=== PATIENT | female | born 1985 | race Caucasian/White ===

== ENCOUNTER 2018-07-21 08:43 | Day surgery (SDC) | payer OTHER ==
[~2018-07-21 08:43] MED LIST: LIDOCAINE 2% (SDV) 5 ML INJ
[2018-07-21] MEDS: CEFAZOLIN 2 GM/50 ML (PMX) 50 ML IVPB (09:30)
[2018-07-21] MEDS: SOD CHLORIDE 0.9% 1,000 ML IV (09:30)
[2018-07-21] MEDS ORDERED: ROCURONIUM 50 MG INJ (11:37)
[2018-07-21] MEDS ORDERED: PROPOFOL 100 ML (11:37)
[2018-07-21] MEDS: BUPIVACAINE 0.25% (MPF) 30 ML INJ (12:19)
[2018-07-21] MEDS ORDERED: CEFAZOLIN 1 GM INJ (12:26)
[2018-07-21] MEDS ORDERED: DEXAMETHASONE 4 MG/ML 1 ML INJ (12:27)
[2018-07-21] MEDS ORDERED: ONDANSETRON 4 MG INJ ×2 (12:27→12:41)
[2018-07-21] MEDS ORDERED: SUGAMMADEX SODIUM 200 MG/2 ML VIAL IV (12:28)
[2018-07-21] MEDS ORDERED: ACETAMINOPHEN 1000MG/100ML IV 100 ML (12:28)
[2018-07-21] MEDS ORDERED: HYDROmorphONE 1 MG/5 ML IV SYRINGE IV ×2 (12:41→13:00)
[2018-07-21] MEDS: ONDANSETRON 4 MG INJ IV (12:48)
[2018-07-21] MEDS: HYDROmorphONE 1 MG/5 ML IV SYRINGE IV ×2 (12:49→12:50)
[2018-07-21] MEDS ORDERED: DIPHENHYDRAMINE 50 MG INJ IV (13:00)
[2018-07-21] MEDS ORDERED: MEPERIDINE 25 MG INJ IV (13:00)
[2018-07-21] MEDS ORDERED: EPHEDrine SULFATE 50 MG/5 ML SYG IV (13:00)
[2018-07-21] MEDS ORDERED: FENTAnyl 50 MCG/ML VIAL IV ×2 (13:00)
[2018-07-21] MEDS ORDERED: OXYCODONE/ACETAMINOPHEN (5/325) TAB PO (13:00)
[2018-07-21] MEDS ORDERED: hydrALAzine 20 MG INJ IV (13:00)
[2018-07-21] MEDS ORDERED: LABETALOL HCL 20MG INJ IV (13:00)
[2018-07-21] MEDS ORDERED: ALBUTEROL 0.083% (NEB) 2.5 MG/3 ML AMP HHN (13:00)
[2018-07-21] MEDS ORDERED: MIDAZOLAM 1 MG/ML 2 ML INJ IV (13:00)
[2018-07-21] MEDS ORDERED: METOCLOPRAMIDE 10 MG INJ IV (13:00)
[2018-07-21] MEDS: KETOROLAC 30 MG INJ IV (13:14)
[2018-07-21] MEDS: HYDROCODONE/APAP (5/325) TAB PO (13:14)
[2018-07-21] MEDS: FENTAnyl 50 MCG/ML VIAL IV (14:07)
[2018-07-21] MEDS: OXYCODONE/ACETAMINOPHEN (5/325) TAB PO (14:49)
== END 2018-07-21 15:40 | disposition home or self-care (01) ==
LOC: SDS 08:43
DX: K80.10 Calculus of gallbladder with chronic cholecystitis without obstruction (principal)
CPT/HCPCS: 47562; 88304